=== PATIENT | female | born 1990 | race Caucasian/White ===

== ENCOUNTER 2018-10-05 18:42 | Emergency (ER) | payer BC, SELFPAY ==
[2018-10-05 18:44] VITALS: BP 131/95; PULSE 110; RESP 16; TEMP 36.6; O2SAT 97
--- NOTE | 2018-10-05 19:26 | ED.GENADUL_ITS ---
Discharge Plan Disposition Patient Disposition: HOME Condition: Improving Discharge Details Chief Complaint: Laceration Clinical Impression: Hand laceration Primary Care Provider: Maral Fuller ED Provider: Bolivar Wei Home Meds and New Rx's Prescriptions: No Action norgestimate-ethinyl estradiol [Ortho-Cyclen (28)] 1 TAB tablet 1 tab PO HS Qty: 3 RF: 6 Discharge Instructions Instructions: Laceration (ED), Skin Adhesive Care (ED) Additional Instructions: Keep wound clean and dry and initial bandage in place for the first 24 to 48 hours if possible. Then you may remove the bandage and provide appropriate wound care and cleaning with mild soap and water as needed. Do not apply any antibiotic ointment as this will prematurely remove the glue. Watch for signs of infection return immediately if these occur otherwise return in 10 days for suture removal Referrals: [facility] Emergency Dept. [Outside] (For suture removal) Medical Decision Making Patient presenting the emergency department chief complaint of laceration. Patient suffered right hand laceration approximately 1 hour prior to arrival due to cutting her hand on glass. Patient states that she is up-to-date on her immunizations and tetanus. Patient has a 2.2 cm laceration to the dorsal aspect of the right hand in between the index and middle finger. Sensation movement and tendon function is fully intact and cap refill is normal. Laceration goes just through the dermal tissue is actively bleeding but no deep structure injury is noted, no foreign body noted. Wound was anesthetized using 1% lidocaine and 2.5 mL's were injected locally. When appropriate anesthetic level was achieved wound was cleaned and irrigated and visualized to base in bloodless field. Wound closed with 4-0 Prolene 2 simple interrupted sutures were utilized. Glue was also applied over top of sutures. Patient tolerated procedure well. Glue was applied to wound due to patient stating that she is going to the beach in [place] and may have exposure to dirt or sand so I feel that this will provide additional protection for infection risk. Infectious symptoms along with return precautions were discussed with patient. Patient to return in 10 days for suture removal. After discussion of diagnosis and plan of care patient has no further needs, questions, or concerns and states clear understanding to return to the emergency department for any worsening symptoms. HPI General Mode of arrival: ambulatory . Date/Time Provider Initiated Documentation: 10/05/18 18:48 . Limitations to Documentation: no limitations . Information obtained by: patient . History of Present Illness 28 year old F presents to the emergency department with the chief complaint of right hand laceration, described as mild, with intensity rated at 3. Quality is described as sharp, and is localized to the right and upper extremity. Patient started experiencing this hour(s) (1) and it has been constant. Patient notes no other symptoms.. Patient did receive the following treatments prior to arrival, none Related Data Home Medications Medication Instructions Recorded Confirmed norgestimate-ethinyl estradiol 1 tab PO HS #3 pack 07/31/16 10/05/18 [Ortho-Cyclen] Allergies Allergy/AdvReac Type Severity Reaction Status Date / Time No Known Allergies Allergy Unverified 10/05/18 18:48 General Stated Complaint: Laceration PJ: 4 Review of Systems Cardiovascular Denies syncope Musculoskeletal Denies deformity, Denies limited range of motion and Denies numbness Integumentary/Breasts Reports as per HPI Neurologic Denies syncope, Denies numbness and Denies paresthesias PFSH Social History Smoking/Tobacco Use Status: Current every day Alcohol Intake: never Drug use: Daily Substance use type: marijuana Do you feel safe at home: Yes Do you feel safe in your relationship?: Yes Exam Const General: cooperative and no acute distress Orientation: alert, awake and oriented x3 Limitations: mental status not altered Resp Effort & Inspection: normal respiratory effort and able to speak in complete sentences Cardio Rate: regular rate Rhythm: regular rhythm Skin Trauma: laceration right dorsal hand linear, actively bleeding, superficial, motor nerve function intact and sensation intact Extrem General: normal exam except as noted Course Vital Signs Temperature 36.6 C 10/05/18 18:44 Pulse 110 H 10/05/18 18:44 Respiratory Rate 16 10/05/18 18:44 Blood Pressure 131/95 H 10/05/18 18:44 Pulse Oximetry 97 10/05/18 18:44 Temperature 36.6 C 10/05/18 18:44 Temperature Source Skin 10/05/18 18:44 Pulse 110 H 10/05/18 18:44 Respiratory Rate 16 10/05/18 18:44 Respiratory Effort Non-Labored 10/05/18 18:47 Blood Pressure 131/95 H 10/05/18 18:44 Blood Pressure Position Sitting 08/14/19 18:44 Pulse Oximetry 97 10/05/18 18:44 Oxygen Delivery Method Room Air 10/05/18 18:44 Oxygen Flow Rate 0 10/05/18 18:44 Pain Level 3 10/05/18 18:49
[2018-10-05 19:44] VITALS: BP 131/95; PULSE 98; RESP 16; TEMP 36.6; O2SAT 97
== END 2018-10-05 19:45 | disposition home or self-care (01) ==
PROVIDERS: Emergency Provider Nurse Practitioner Family; PCP Nurse Practitioner Family
DX: S61.411A Laceration without foreign body of right hand, initial encounter (principal); W25.XXXA Contact with sharp glass, initial encounter; Y93.G1 Activity, food preparation and clean up
CPT/HCPCS: 12001

== ENCOUNTER 2018-10-15 09:38 | Emergency (ER) | payer BC, SELFPAY ==
--- NOTE | 2018-10-15 09:45 | ED.GENADUL_ITS ---
Discharge Plan Disposition Patient Disposition: HOME Condition: Stable Discharge Details Clinical Impression: Visit for suture removal Primary Care Provider: Maral Fuller ED Provider: Cheng Duran Home Meds and New Rx's Prescriptions: Continued norgestimate-ethinyl estradiol [Ortho-Cyclen (28)] 1 TAB tablet 1 tab PO HS Qty: 3 RF: 6 Discharge Instructions Additional Instructions: Return for any acute concerns. The Steri-Strips will curl may be removed in approximately 5 to 7 days time. Medical Decision Making Pleasant and otherwise healthy 28-year-old female presents for suture removal from repaired hand laceration. The wound is well-appearing and sutures removed without difficulty. Stable for discharge to home. HPI General Mode of arrival: ambulatory . Date/Time Provider Initiated Documentation: 10/15/18 09:40 . Limitations to Documentation: no limitations . Information obtained by: patient . History of Present Illness 28 year old F presents to the emergency department with the chief complaint of Here for suture removal, no other complaints, Related Data Home Medications Medication Instructions Recorded Confirmed norgestimate-ethinyl estradiol 1 tab PO HS #3 pack 07/31/16 10/05/18 [Ortho-Cyclen (28)] Allergies Allergy/AdvReac Type Severity Reaction Status Date / Time No Known Allergies Allergy Unverified 10/05/18 18:48 General PJ: 4 PFSH Social History Smoking/Tobacco Use Status: Current every day Alcohol Intake: never Drug use: Daily Substance use type: marijuana Do you feel safe at home: Yes Do you feel safe in your relationship?: Yes Exam Narrative Exam Narrative: GEN: awake, alert, oriented 3. Pleasant, well groomed, interactive. HEAD: Normocephalic, atraumatic EXT: Full ROM, no edema, no rash. Healing laceration with 2 Prolene sutures present R hand on the dorsumn base of index finger Neuro: Grossly normal neurologic exam, conversant, interactive. Psych: Speech fluent, thoughts congruent, affect normal
[2018-10-15 09:46] VITALS: PULSE 88; TEMP 36.5
[2018-10-15 09:47] VITALS: PULSE 88; TEMP 36.5
== END 2018-10-15 09:50 | disposition home or self-care (01) ==
LOC: ER 09:53
PROVIDERS: Emergency Provider Emergency Medicine; PCP Nurse Practitioner Family
DX: S61.411D Laceration without foreign body of right hand, subsequent encounter (principal); W25.XXXD Contact with sharp glass, subsequent encounter; Z48.02 Encounter for removal of sutures

== ENCOUNTER 2018-10-18 15:15 | Outpatient (REF) | payer BC, SELFPAY ==
[2018-10-18 18:16] LABS: HCT 41.9 % (36.0-46.0); HGB 13.8 g/dL (12.0-15.5); Mean Corp. HGB Concentration 32.9 g/dL (32.0-36.0); Mean Corpuscular Hemoglobin 27.7 pg (27.0-33.0); Mean Platelet Volume 12.2 fL (8.0-11.0); Platelet Count 314 x1000/uL (130-400); RBC 4.99 m/cumm (4.00-5.20); White Blood Cell Count 14.18 k/cumm (4.4-10.8)
[2018-10-18 18:32] LABS: ALT 21 U/L (14-59); AST 15 U/L (15-37); Albumin 3.3 g/dL (3.4-5.0); Alkaline Phosphatase 93 U/L (46-116); BUN 7 mg/dL (7-18); Bilirubin, Total 0.1 mg/dL (0.2-1.0); CREATININE 0.83 mg/dL (0.55-1.02); Calcium 8.6 mg/dL (8.5-10.1); Chloride 103 mmol/L (98-107); Glucose 101 mg/dL (70-100); Sodium 140 mmol/L (136-145); TSH (W/Ref FT4) 2.26 uIU/mL (0.36-3.74); Total Protein 7.1 g/dL (6.4-8.2)
[2018-10-19 09:41] LABS: Vitamin D 25 Total 19.3 ng/ml (30-100)
== END 2018-10-18 15:35 ==
LOC: NCHCN 15:15
PROVIDERS: PCP Nurse Practitioner Family; Visit Provider Nurse Practitioner Family
DX: R53.83 Other fatigue (principal); F41.1 Generalized anxiety disorder
CPT/HCPCS: 80053; 82306; 85027; 84443

== ENCOUNTER 2019-03-01 22:11 | Outpatient (REF) | payer BC, SELFPAY ==
--- NOTE | 2019-03-01 16:30 | PAPFT_PTH ---
PATIENT: Skyler Dumont LOC: [facility] U#:[id number] AGE/SX: 28/F ROOM: RE03/01/[address]: Milly Morales : 1990 BED: DIS: 03/01/2019 SPEC #: [id number] RECD: 03/02/19 12:35 STATUS: KAELA REJenna #: [id number] MICHAEL: 03/01/19 16:[address]: Milly Morales DEPT: [facility] Cytology RECD BY: Deya Sharp ENTERED: 03/02/19 12:35 SP TYPE: PAPFT OTHR DR: Jonny Baer Tissues: 1 - CX/ENDOCX FOR PAP SMEARS Procedures: PAP THIN PREP/UVM Screening Comments: [id number] (CHLAMYDIA/GC)
[2019-03-01 19:55] LABS: Bilirubin Negative (Negative); Blood Negative (Negative); Clarity Clear (Clear); Glucose Negative (Negative); Ketones Negative (Negative); Leukocyte Esterase Negative (Negative); Nitrite Negative (Negative); Specific Gravity 1.015 (1.005-1.025); Urobilinogen 0.2 EU/dL (Up TO 0.2)
[2019-03-03 14:05] LABS: Chlamydia Result Negative (Negative); GC Result Negative (Negative)
== END 2019-03-01 22:31 ==
LOC: NCHCN 22:11
PROVIDERS: PCP Nurse Practitioner Family; Visit Provider Nurse Practitioner Family
DX: R30.0 Dysuria (principal); Z11.3 Encounter for screening for infections with a predominantly sexual mode of transmission; Z12.4 Encounter for screening for malignant neoplasm of cervix; Z00.00 Encounter for general adult medical examination without abnormal findings
CPT/HCPCS: 87491; 87591; 88142; 81003

== ENCOUNTER 2019-03-03 15:13 | Outpatient (REF) | payer BC, SELFPAY ==
[2019-03-06 15:45] LABS: HSV Type 1 Ab, IgG Positive (Negative); HSV Type 2 Ab, IgG Negative (Negative); Varicella IgG Antibody Positive (See Note)
== END 2019-03-03 15:33 ==
LOC: NCHCN 15:13
PROVIDERS: PCP Nurse Practitioner Family; Visit Provider Nurse Practitioner Family
DX: Z20.828 Contact with and (suspected) exposure to other viral communicable diseases (principal)
CPT/HCPCS: 86787; 86695; 86696

== ENCOUNTER 2020-01-02 01:09 | Outpatient (CLI) | payer BC, SELFPAY ==
--- NOTE | 2020-01-02 | DI.US_ITS ---
EXAM: US PELVIS TRANSVAGINAL CLINICAL HISTORY: IRREGULAR MENSES,N92.6,LLQ ABD PAIN,R10.32,RLQ ABD PAIN,R10.31. TECHNIQUE: Transabdominal and transvaginal pelvic ultrasound was performed using standard protocol. COMPARISON: No exams were available for comparison FINDINGS: KIDNEYS: Kidneys are symmetric in size. No evidence of renal calculi. No evidence of hydronephrosis. No renal mass or cyst identified. UTERUS: Position: Anteverted. Size: 6.3 long by 2.5 AP by 3.5 transverse cm Endometrium: 0.2 cm. Normal for patient's menstrual status. Myometrium: Unremarkable. Cervix: Unremarkable. OVARIES: Right: 2 x 1.4 x 1.4 cm Cyst or mass: Small follicular cysts present. Left: 2.6 x 1.4 x 1.5 cm Cyst or mass: Small follicular cysts present. DOPPLER: Color: Symmetric and uniform flow to both ovaries. No hyperemia. Duplex: Normal ovarian arterial waveforms visualized. CUL-DE-SAC: Free fluid: None. Other: None. IMPRESSION: 1. Normal sonographic appearance of the kidneys. 2. Normal-appearing uterus with endometrial stripe within normal limits. 3. Unremarkable bilateral ovaries. DATA REPOSITORY:
== END 2020-01-02 01:29 ==
PROVIDERS: PCP Nurse Practitioner Family; Visit Provider Nurse Practitioner Family
DX: N92.6 Irregular menstruation, unspecified (principal); R10.32 Left lower quadrant pain; R10.31 Right lower quadrant pain
CPT/HCPCS: 76830; 76856

== ENCOUNTER 2020-07-25 11:28 | Emergency (ER) | payer OTHER, SELFPAY ==
[2020-07-25 11:29] VITALS: BP 123/75; PULSE 80; RESP 16; TEMP 37; O2SAT 96
--- NOTE | 2020-07-25 11:29 | ED.GENADUL_ITS ---
Discharge Plan Disposition Patient Disposition: HOME Condition: Stable Discharge Details Clinical Impression: Facial twitching Primary Care Provider: Unknown,Unknown ED Provider: Daily Wagner Home Meds and New Rx's Prescriptions: Continued norgestimate-ethinyl estradiol [Ortho-Cyclen (28)] 1 TAB tablet 1 tab PO HS Qty: 3 RF: 6 escitalopram oxalate [Lexapro] 20 mg tablet 20 mg PO DAILY RF: 0 clindamycin phosphate 1 % solution 1 applic topical BID RF: 0 hydrocortisone [Proctosol HC] 2.5 % cream with perineal applicator 1 applic NJ TID PRNRF: 0 clonazepam 0.5 mg tablet 0.5 mg PO DAILY PRNRF: 0 Depo-SubQ provera 104 104 mg/0.65 mL syringe 104 mg SUBCUT Q3M RF: 0 Discharge Instructions Instructions: Stress (ED) Additional Instructions: At this time, your left lower lip drooping appears to be a stress reaction. The symptoms do improve when you are discussing things that make you happy or stress relieving. However, when discussing your upcoming test the symptoms begin once again. Your exam is not consistent with stroke or Moura's palsy today. Please take your clonazepam as previously prescribed. Please follow-up with primary care in the next week. If your symptoms become more consistent or you develop other new/worsening symptoms seek care urgently once again. Please try stress reduction techniques as much as possible. Referrals: Jonny Baer CONCRETE PUMP OPERATOR HELPER [NURSE PRACTITIONER] - Discharge Data Discharge Date/Time-TO BE ENTERED AT DEPARTURE: 07/25/20 13:01 Medical Decision Making Patient is a pleasant 30-year-old female presenting today with chief complaint of left-sided facial droop. Patient seen in urgent care prior to arrival and there was concern for potential CVA prompting him to seek care here. Initially, patient has been questioning if this Moura's palsy but per provider at the urgent care, patient had good mobility of her forehead. Patient states that symptoms began yesterday. Have waxed and waned since then. She denies any headache at this time. Has not noted any rash. States that she can have some numbness associated with this facial droop but that this to waxes and wanes. On exam, patient appears anxious. When discussing her current home life, patient does break out to tears. Patient safe at home. However, she has a large amount of stress associated, and exam. She reports that she has certifying exam tomorrow that she has already failed x1 and this seems to be greatly increasing her stress. She reports that she does have a history of anxiety and depression. Is chronically on citalopram which she takes daily. But, she does have clonazepam as needed that she has not been using. Her neurologic exam is intact. When I first evaluated her, she did have a left lower lip facial droop but this appeared to be voluntary. Patient had clear muscle activation pulling the lip in a downward projection. When distracting her, the droop would instantly go away. Droop would also increase when her discussing her upcoming test and then subside when talking about something that she enjoys. At one point, the lower droop completely subsided and she began to curl her upper lip at the center aspect of the lip. She states that she can feel it coming on. Can also make it stop and come back. However, she feels that overall this is a very involuntary movement. I discussed the potential for this being a stress reaction. At this time, her neurologic exam is intact. I not see any evidence to suggest CVA, Moura's palsy, infection. Discussed imaging and workup with the patient, she would prefer to hold off. Would like a dose of her PRN clonazepam. Spoke with urgent care PA who evaluated the patient initially. She states that at that time the symptom seemed more persistent. She was concerned for CVA. Reassessed the patient after speaking with Sherine Tobar PA-C, she reports that she is feeling improved after the p.o. clonazepam. Patient and I again discussed her current life stressors. When we discussed things she enjoys, the symptoms completely subside and then returned when discussing the test. She also reports that this time that she has been more fatigued than typical. She denies did discuss that this could be an electrolyte abnormality, thyroid disorder versus other. Patient and I discussed diagnostic work-up further. This clearly appears to be more of a stress reaction rather than Moura's or CVA. Again, she only has symptoms when she is discussing stressful things and they are able to resolve or migrate when discussing other things. Clonazepam greatly helped her symptoms. She is speaking without recurrence of her facial tick. I did advise that she should begin taking this once a day. At this time she reports I am all done for today. She does not want to move forward with any further imaging or blood work for follow-up with primary care. All of her questions and dconcerns were addressed, she is in agreement with this plan. Reached out to patient's PCP, they called back after patient left. They will reach out to patient today to schedule close f/u. HPI General Mode of arrival: ambulatory . Date/Time Provider Initiated Documentation: 07/25/20 11:28 . Limitations to Documentation: no limitations . Information obtained by: patient, RN/MD (contacted by PA at urgent care prior to her arrival) and RN notes reviewed . History of Present Illness 30 year old F presents to the emergency department with the chief complaint of left sided facial droop, described as moderate, Quality is described as other (numbness), and is localized to the face. Patient reports no radiation. Patient started experiencing this day(s) (1) and it has been intermittent. No relieving factors improve symptom(s), Other factors that worsen symptoms (stress) . Patient notes no other symptoms.; denies fever/chills, headaches, loss of appetite, nausea/vomiting, rash, shortness of breath and syncope. Patient did receive the following treatments prior to arrival, none Related Data Home Medications Medication Instructions Recorded Confirmed norgestimate-ethinyl estradiol 1 tab PO HS #3 pack 07/31/16 01/04/20 [Ortho-Cyclen (28)] clindamycin phosphate 1 % topical 1 applic TOPICAL BID 12/06/19 07/25/20 solution clonazepam 0.5 mg tablet 0.5 mg PO DAILY PRN 12/06/19 07/25/20 escitalopram oxalate 20 mg tablet 20 mg PO DAILY 12/06/19 07/25/20 hydrocortisone 2.5 % topical cream 1 applic NJ TID PRN g 12/06/19 07/25/20 with perineal applicator Depo-SubQ provera 104 104 mg SUBCUT Q3M 07/25/20 07/25/20 Allergies Allergy/AdvReac Type Severity Reaction Status Date / Time No Known Allergies Allergy Unverified 07/25/20 11:35 General PJ: 4 Review of Systems Constitutional Constitutional: Reports as per HPI, Denies chills, Reports fatigue (reports increased fatigue for several weeks), Denies fever(s), Denies frequent falls, Denies headache(s), Denies snoring and Denies weakness Eyes Eyes: Reports as per HPI, Denies blurry vision, Denies change in vision and Reports photophobia ENT Ears, Nose, Mouth, and Throat: Denies vertigo, Denies otalgia, Denies facial pain, Denies headache(s), Denies neck pain, Denies disequilibrium, Denies sore throat, Denies throat swelling and Denies tongue swelling Cardiovascular Cardiovascular: Reports as per HPI, Denies chest pain, Denies lightheadedness, Denies dyspnea and Denies dyspnea on exertion Respiratory Respiratory: Reports as per HPI, Denies chest congestion, Denies cough, Denies dyspnea, Denies dyspnea on exertion, Denies snoring, Denies stridor and Denies wheezing Gastrointestinal Gastrointestinal: Reports as per HPI, Denies abdominal pain, Denies change in bowel habits, Denies nausea and Denies vomiting Musculoskeletal Musculoskeletal: Reports as per HPI, Denies back pain, Denies myalgias, Denies muscle cramps, Denies neck pain and Denies numbness Integumentary/Breasts Skin/Breast: Reports as per HPI and Denies rash Neurologic Neurologic: Reports as per HPI, Denies abnormal movements, Denies abnormal speech, Denies vertigo, Denies frequent falls, Denies headache(s), Denies localized weakness, Denies numbness, Denies sensory deficit, Denies disequilibrium and Denies weakness Psychiatric Psychiatric: Reports abnormal sleep pattern (sleeping more than normal past several weeks), Reports anxiety, Reports depression and Denies panic attacks Endocrine Endocrine: Reports fatigue (reports increased fatigue for several weeks) Allergic/Immunologic Allergic/Immunologic: Denies throat swelling, Denies tongue swelling and Denies wheezing [facility] Medical History Allergic rhinitis Anxiety disorder Breast lump Herpes labialis Hidradenitis suppurativa Urinary frequency Social History Smoking/Tobacco Use Status: Current every day Smoking risk assessment performed?: Yes Alcohol Intake: never Drug use: Daily Substance use type: marijuana Do you feel safe at home: Yes Do you feel safe in your relationship?: Yes Exam Const General: cooperative, healthy appearing, uncomfortable, no acute distress, well developed and well groomed Nutritional Appearance: average body habitus and well nourished Orientation: alert, awake and oriented x3 [facility] Head: normal to inspection, no palpable skull fracture, normocephalic and atraumatic Ears: hearing grossly normal bilaterally, external ears normal and TM's normal bilaterally General nose exam: external nose normal Mouth: oral mucosae normal and moist mucous membranes Throat: posterior oropharynx normal Eyes General: appearance normal, both eyes and all related structures Alignment and Position: alignment normal Periorbital: periorbital findings normal Eyelids: eyelids normal Sclera: sclerae normal Cornea: corneas normal Pupils: PERRL EOM: EOM intact bilaterally Neck Neck: normal visual inspection, full ROM, no lymphadenopathy and no meningeal signs Resp Effort & Inspection: normal respiratory effort, able to speak in complete sentences and no respiratory distress Auscultation: clear to auscultation bilaterally, no rales, no rhonchi and no wheezes Cardio Rate: regular rate Rhythm: regular rhythm Heart Sounds: S1 normal and S2 normal GI Inspection: normal to inspection and non-distended Palpation: soft, no hepatosplenomegaly, not firm, no guarding, not rigid and nontender Percussion: normal to percussion Auscultation: normal bowel sounds Back/Spine/Pelvis Cervical Spine: normal cervical lordosis and cervical ROM normal Skin General skin exam: no rashes or lesions noted Neuro General: patient alert, patient awake and patient oriented x3 Cranial Nerves: CN's II-XI intact bilaterally (intermittent droop to left lower lip), PERRL, accommodation normal, EOM intact bilaterally, no nystagmus, facial strength normal, tongue midline, able to rotate head bilaterally and able to elevate shoulders bilaterally Cognition: normal cognition Speech: speech normal Gait: normal gait Motor: muscle tone normal throughout, strength 5/5 throughout, no pronator drift, no movement abnormalities noted and no fasciculations Sensory Exam: no sensory deficits noted Coordination: [id number] test normal, [id number] test normal, Romberg test normal, Does not sway with eyes open and rapid alternating movement UE normal Extrem General: normal to inspection, capillary refill normal, no pedal edema and no calf tenderness Psych Appearance: grossly normal and well kempt Mental Status: mental status grossly normal Speech and Movement: speech and movement normal
[2020-07-25] MEDS: clonazePAM 0.5 MG TAB PO (12:01)
[2020-07-25 13:01] VITALS: BP 116/80; PULSE 80; O2SAT 100
== END 2020-07-25 13:01 | disposition home or self-care (01) ==
PROVIDERS: Emergency Provider Physician Assistant
DX: R25.3 Fasciculation (principal)
CPT/HCPCS: 99283

== ENCOUNTER 2020-09-11 05:58 | Emergency (ER) | payer OTHER, SELFPAY ==
--- NOTE | 2020-09-11 06:00 | DI.RAD_ITS ---
Exam(s) XR ABD FLAT UPRIGHT PA CHEST EXAM: XR ABD FLAT UPRIGHT PA CHEST CLINICAL HISTORY: luq abdominal pain, r/o chilaiditi syndrome. TECHNIQUE: 2D digital imaging was performed. COMPARISON: CR CHEST 2 VIEWS PA,LAT from 08/16/2008 FINDINGS: Heart size is normal. The mediastinum is not widened. No pulmonary infiltrates nor pleural effusion s. No pneumothorax. There is platelike atelectasis in the right lung base. However, there is subtl e suggestion of possible free air subjacent to the right hemidiaphragm. Unfortunately the upright ab domen view does not include the right hemidiaphragm. Therefore these to be repeated. The bowel gas pattern is otherwise nonspecific. No evidence of bowel obstruction. No obvious masses nor bowel displacement. No abnormal calcifications. Regional bones appear unremarkable. IMPRESSION: As above. The upright abdomen film needs to be repeated to include the right hemidiaphragm. DATA REPOSITORY: RADIATION DOSE DELIVERED:
--- NOTE | 2020-09-11 06:00 | RT.EKG_ITS ---
APPROVED REPORT Exam: Resting ECG Reason for Exam: left chest pain Patient Location: E HR:70 bpm ECG Measurements Heart Rate 70 AXIS NV 137 P 23 QRSd 96 QRS 44 QT 388 T 27 QTc 417 Conclusion Sinus rhythm...normal P axis, V-rate 60- 99 Physician: no stemi. small q wave in lead 3. no significant st elevation or depressions
[2020-09-11 06:01] VITALS: BP 147/95; PULSE 94; TEMP 36.3; O2SAT 97
--- NOTE | 2020-09-11 06:12 | ED.GENADUL_ITS ---
Discharge Plan Disposition Patient Disposition: HOME Condition: Good Discharge Details Clinical Impression: Acute LUQ pain Primary Care Provider: Unknown,Unknown ED Provider: Jerome Jorgensen Home Meds and New Rx's Prescriptions: Continued escitalopram oxalate [Lexapro] 20 mg tablet 20 mg PO DAILY RF: 0 clindamycin phosphate 1 % solution 1 applic topical BID RF: 0 hydrocortisone [Proctosol HC] 2.5 % cream with perineal applicator 1 applic GA TID PRNRF: 0 clonazepam 0.5 mg tablet 0.5 mg PO DAILY PRNRF: 0 Depo-SubQ provera 104 104 mg/0.65 mL syringe 104 mg SUBCUT Q3M RF: 0 Discharge Instructions Instructions: Abdominal Pain (ED) Additional Instructions: At this time as we discussed together I suspect your symptoms are component of gas from your intestines causing irritation on your left upper diaphragm. Please transition to a low-fat, high-fiber, low fermentation diet. Please take Gas-X or Pepto-Bismol as needed. As we discussed if your symptoms persist after transition of diet and these therapies you may need further evaluation with ultrasound of your liver, CAT scan of your abdomen, or potential blood work. Please follow-up closely with your primary care provider. If you notice any wo rsening of your symptoms, or any new symptoms such as vomiting, diarrhea, fever, chills, shortness of breath, chest pain, numbness, weakness, or fainting , please return immediately to the emergency department for reevaluation. Please follow up with your primary care provider as soon as possible for reassessment and reevaluation. As always, it was a pleasure participating in your medical care today. Referrals: Sonia Dickson [NURSE PRACTITIONER] - Medical Decision Making This is a 30-year-old female with past medical history of elevated BMI, hidradenitis suppurativa, tobacco abuse, who presents today for evaluation of left upper quadrant abdominal pain. Patient states that for the last 2 to 3 weeks she has had intermittent left-sided pain in the left upper quadrant that comes and goes. She describes as an achy sensation, when it gets severe it will radiate up into her left chest and left shoulder. She states that it seems to be associated with food. She denies any spicy food intake, or any association with spicy foods or tomato based products. She denies any vomiting. She does admit to some intermittent loose stools recently. She denies any cough, fever or chills. No other complaints at this time. No other modifying factors. She denies any history of heart disease. Exam demonstrates a notably unremarkable abdomen, no evidence of an acute surgical abdomen whatsoever. However I am deep notably pressured palpation specifically under the left lateral ribs the patient does have some tenderness in the area of the liver there, however there is no evidence of hepatomegaly. No history of HIV or hepatitis. Differential is highest for gastric ulcer and esophagitis, however differential also does include Chilaiditi syndrome. ACS unlikely. Scad unlikely. Will get screening EKG out of an abundance of precaution, get a chest x-ray and abdominal series, monitor closely and reassess. 7:17 AM X-ray results have returned, no evidence of acute process, there is mild pistol- citizen participation specialist deformities in the femurs that is noted, and I did discuss this with the patient she does admit to chronic hip pain, and also notes that her family has all had major hip surgery by the age of 50. [address] a PT referral on an outpatient basis for further strengthening and physical therapy. In regards to the patient's abdominal pain she feels well at this point. I did discuss further imaging and labs, but I also note no evidence of an acute surgical abdomen at this time, and feel her symptoms are likely still from bowel causing diaphragmatic irritation. At this time through shared decision-making process patient declines additional imaging or labs at this time, and will follow-up closely with PCP. However we do recommend that the patient make notable dietary changes to increase her fiber, decrease her fatty food intake, and transition to a low fermenting diet. Discussed the potential need for further imaging and labs if the symptoms do not resolve with this. Discussed red flags which to return. I have extensively reviewed the treatment plan and discharge instructions with the patient. I have addressed all patient concerns at this time. The patient was made aware of what symptoms to monitor for that would warrant a return to the emergency department. Discussed the plan with the p atient, they demonstrate verbal understanding and agreement with our assessment and plan at this time. The documentation in this chart was dictated using [employer] dictation software. Please excuse any dictation errors. FINDINGS: Lungs: Normal. No consolidation. Pleural spaces: Normal. No pleural effusions. No pneumothorax. Heart/Mediastinum: Normal. No cardiomegaly. Gastrointestinal tract: Normal. No bowel dilation. Intraperitoneal space: Normal. No free air. Bones/joints: No acute osseous abnormalities. Mild pistol citizen participation specialist deformities of the femurs are noted. This can predispose the patient to cam type femoroacetabular impingement. Soft tissues: Normal. IMPRESSION: 1. No acute findings. 2. Mild pistol citizen participation specialist deformities of the femurs are noted. This can predispose the patient to cam type femoroacetabular impingement. Dedicated imaging of the hips can be obtained as clinically appropriate. Thank you for allowing us to participate in the care of your patient. HPI General Date/Time Provider Initiated Documentation: 09/11/20 05:59 . HPI Narrative: This is a 30-year-old female with past medical history of elevated BMI, hidradenitis suppurativa, tobacco abuse, who presents today for evaluation of left upper quadrant abdominal pain. Patient states that for the last 2 to 3 weeks she has had intermittent left-sided pain in the left upper quadrant that comes and goes. She describes as an achy sensation, when it gets severe it will radiate up into her left chest and left shoulder. She states that it seems to be associated with food. She denies any spicy food intake, or any association with spicy foods or tomato based products. She denies any vomiting. She does admit to some intermittent loose stools recently. She denies any cough, fever or chills. No other complaints at this time. No other modifying factors. She denies any history of heart disease. Related Data Home Medications Medication Instructions Recorded Confirmed clindamycin phosphate 1 % topical 1 applic TOPICAL BID 12/06/19 09/11/20 solution clonazepam 0.5 mg tablet 0.5 mg PO DAILY PRN 12/06/19 09/11/20 escitalopram oxalate 20 mg tablet 20 mg PO DAILY 12/06/19 09/11/20 hydrocortisone 2.5 % topical cream 1 applic GA TID PRN g 12/06/19 09/11/20 with perineal applicator Depo-SubQ provera 104 104 mg SUBCUT Q3M 07/25/20 09/11/20 Allergies Allergy/AdvReac Type Severity Reaction Status Date / Time No Known Allergies Allergy Unverified 07/25/20 11:35 General Stated Complaint: Abd Prob PJ: 3 Review of Systems All systems reviewed & are unremarkable except as noted in HPI and below PFSH Medical History Allergic rhinitis Anxiety disorder Breast lump Herpes labialis Hidradenitis suppurativa Urinary frequency Social History Smoking/Tobacco Use Status: Current every day Smoking risk assessment performed?: Yes Alcohol Intake: never Drug use: Daily Substance use type: marijuana Do you feel safe at home: Yes Do you feel safe in your relationship?: Yes Exam Narrative Exam Narrative: 1.Const: Well-nourished, Well-developed, appearing stated age 2.Eyes: PERRL, no conjunctival injection, and symmetrical lids. 3.ENT: Atraumatic external nose and ears. Moist MM. Neck: Symmetric, trachea midline, No thyromegaly. 4.CVS: +S1/S2, No murmurs or gallops. Peripheral pulses 2+ and equal in all extremities. Brisk capillary refill in all extremities. 5.RESP: Unlabored respiratory effort. Clear to auscultation bilaterally. No wheezes rales or rhonchi 6.GI: Soft, Nontender/Nondistended, No hepatosplenomegaly. No guarding or rebound. No generalized tenderness in the left upper, left lower, right upper or right lower quadrants. No pain or McBurney's point, negative Michelle sign. On notably deep pressured palpation with notable palpation under the left rib cage the patient does demonstrate some mild tenderness and sensitivity. No signs of an acute surgical abdomen whatsoever though. 7.MSK: Normocephalic/Atraumatic, Extremities w/o deformity or ttp No cyanosis or clubbing, Normal movement of all extremities 8.Skin: Warm, Dry. No rashes or lesions. 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 Sensation grossly intact, no focal neurologic deficits. 10.Psych: (AAO) x3. Appropriate mood and affect Course Vital Signs Vital signs: Vital Signs Temperature 36.3 C L 09/11/20 06:01 Pulse 94 H 09/11/20 06:01 Blood Pressure 147/95 H 09/11/20 06:01 Pulse Oximetry 97 09/11/20 06:01 Temperature 36.3 C L 09/11/20 06:01 Temperature Source Temporal Artery Scan 09/11/20 06:01 Pulse 94 H 09/11/20 06:01 Respiratory Effort Non-Labored 09/11/20 06:09 Blood Pressure 147/95 H 09/11/20 06:01 Blood Pressure Position Sitting 09/11/20 06:01 Pulse Oximetry 97 09/11/20 06:01 Oxygen Delivery Method Room Air 09/11/20 06:01 Oxygen Flow Rate 0 09/11/20 06:01 Pain Level 7 09/11/20 06:01
--- NOTE | 2020-09-11 06:58 | DI.VRAD_ITS ---
PROCEDURE INFORMATION: Exam: XR Complete Acute Abdomen Series Including Chest Exam date and time: 09/11/2020 6:11 AM Age: 30 years old Clinical indication: Localized; Left upper quadrant (luq); Patient HX: Luq abdominal pain, R/O chilaiditi syndrome TECHNIQUE: Imaging protocol: XR complete acute abdomen series, including 2 or more views of the abdomen and a single view chest. COMPARISON: No relevant prior studies available. FINDINGS: Lungs: Normal. No consolidation. Pleural spaces: Normal. No pleural effusions. No pneumothorax. Heart/Mediastinum: Normal. No cardiomegaly. Gastrointestinal tract: Normal. No bowel dilation. Intraperitoneal space: Normal. No free air. Bones/joints: No acute osseous abnormalities. Mild pistol sail lay out worker deformities of the femurs are noted. This can predispose the patient to cam type femoroacetabular impingement. Soft tissues: Normal. IMPRESSION: 1. No acute findings. 2. Mild pistol sail lay out worker deformities of the femurs are noted. This can predispose the patient to cam type femoroacetabular impingement. Dedicated imaging of the hips can be obtained as clinically appropriate. Dictated and Authenticated by: Otis Keith MD. Ordering:RIKY Cano MD
--- NOTE | 2020-09-11 08:59 | W.ED.FU ---
I received a call the morning of 09-11-20 at approximately 805 from radiology. Over read of plain film overnight, cannot rule out free air under the right hemidiaphragm. Recommend repeat upright film. I contacted the patient on her cell phone at 0815, phone call went to her voicemail. I left a message requesting that she call back to the ER at [phone] regarding her ER visit.
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
== END 2020-09-11 07:16 | disposition home or self-care (01) ==
PROVIDERS: Emergency Provider Student in an Organized Health Care Education/Training Program
DX: R10.12 Left upper quadrant pain (principal)
CPT/HCPCS: 81025; 93005; 99284; 74022; 93010; 99283

== ENCOUNTER 2020-09-12 19:25 | Emergency (ER) | payer OTHER, SELFPAY ==
[2020-09-12 19:30] VITALS: BP 122/101; PULSE 86; RESP 18; TEMP 36.6; O2SAT 97
--- NOTE | 2020-09-12 19:30 | DI.CT_ITS ---
Exam(s) CT CHEST/ABD/PEL W EXAM: CT CHEST/ABD/PEL W CLINICAL HISTORY: R/O free air right hemidiaphragm, LUQ abd pain. TECHNIQUE: Imaging Protocol: Axial computed tomography images with coronal and sagittal reformatted images were created and reviewed CONTRAST MATERIAL: Intravenous: Omnipaque 350 Contrast volume:100 ml Oral: / no COMPARISON: CR,XR XR ABD FLAT UPRIGHT PA CHEST from 09/11/2020 CR,XR XR ABD FLAT UPRIGHT PA CHEST from 09/11/2020 FINDINGS: CHEST: Tracheobronchial tree: Patent where visualized. Mediastinum and Talia: No dominant adenopathy or fluid collection. Pulmonary parenchyma: Minimal ground-glass opacity anterior right upper lobe no consolidation or lisa nant measurable mass. Pleura: No effusion or pneumothorax. Lymph nodes: Within normal limits. Aorta: Thoracic portion non-dilated. Heart: Normal size. Bones: Unremarkable for age. No lytic or blastic lesions. ABDOMEN: Liver: Normal density. No measurable mass. Gallbladder and biliary tract: No radiodense calculus or dilation. Pancreas: Normal density, no abnormal calcifications or inflammatory process. Spleen: Normal. Kidneys: Normal size, contour and axis. No radiodense stones or obstructive uropathy. No masses seen. Adrenal glands: No masses seen. Aorta: Abdominal portion non-dilated. Lymph nodes: Within normal limits. Soft tissues: Unremarkable. PELVIS: Bladder: Symmetric distention, no gross wall thickening. Bowel: No obstruction or bowel wall thickening. Normal appendix. No evidence of Chilaiditi'ss syndro me Peritoneal cavity: No ascites, collection or mesenteric inflammatory response. Bones: Unremarkable for age.. Reproductive organs: Within normal limits. IMPRESSION: No evidence free air. No acute abnormality in the chest abdomen or pelvis.. RADIATION DOSE DELIVERED: 1,800.69mGy.cm Total DLP DATA REPOSITORY: All CT scans at this facility are submitted to the National Radiology Data Registry (NRDR) Dose Index Registry (DIR) with the [employer] (A[employer]). RADIATION OPTIMIZATION: All CT scans at this facility use at least one of these dose optimization te chniques: automated exposure control; mA and/or kV adjustment per patient size (includes targeted exa ms where dose is matched to clinical indication); or iterative reconstruction.
--- NOTE | 2020-09-12 19:36 | W.ED.GENAD ---
Discharge Plan Disposition Patient Disposition: HOME Condition: Stable Discharge Details Clinical Impression: Gastroenteritis Primary Care Provider: Unknown,Unknown ED Provider: Virgen Funez Home Meds and New Rx's Prescriptions: Continued escitalopram oxalate [Lexapro] 20 mg tablet 20 mg PO DAILY RF: 0 clindamycin phosphate 1 % solution 1 applic topical BID RF: 0 hydrocortisone [Proctosol HC] 2.5 % cream with perineal applicator 1 applic [place] TID PRNRF: 0 clonazepam 0.5 mg tablet 0.5 mg PO DAILY PRNRF: 0 Depo-SubQ provera 104 104 mg/0.65 mL syringe 104 mg SUBCUT Q3M RF: 0 Discharge Instructions Instructions: Gastroenteritis (ED) Additional Instructions: CT shows some wall thickening of your bowel, no abnormalities on your chest CT or lungs. [place] diet for 2 to 3 days. Follow up with primary care provider in 3-5 days. Return to ED sooner if any worsening or concerns. Increase oral fluids. Please take Tylenol or Ibuprofen with food every 4-6 hours as needed for pain and swelling. Please return for any fever, vomiting, worsening abdominal pain, blood in your stools or vomiting of blood or any concerns. Discharge Data Discharge Date/Time-TO BE ENTERED AT DEPARTURE: 09/12/20 21:15 Medical Decision Making 30-year-old female presents to the ER after being called to return for possible free air in the right hemidiaphragm noted on chest x-ray which was performed proximately 24 hours ago. Patient was originally seen in the emergency room for left upper quadrant abdominal pain. Had a 3 view abdominal x-ray. She denies any nausea vomiting but reports some smaller increase in frequency loose stools. Denies any recent injury or shortness of breath. Labs ordered including CBC, CMP, urine CT chest abdomen pelvis with IV contrast. CBC shows white blood cell count 14.52, rest of the labs are largely unremarkable CR XR ABD FLAT UPRIGHT PA CHEST 09/11/2020 6:40 AM FINDINGS: Lungs: Normal lung architecture. Negative for consolidation. Negative for suspicious nodule. Scattered peripheral ground-glass opacity, right upper lobe and right middle lobe, nonspecific. Pleural spaces: Unremarkable. No pneumothorax. No pleural effusion. Heart: Unremarkable. No cardiomegaly. No pericardial effusion. Mediastinal space: Normal thymic remnant tissue. Aorta: Unremarkable. No aortic aneurysm. Lymph nodes: Unremarkable. No enlarged lymph nodes. Bones/joints: Unremarkable. No acute fracture. Soft tissues: Unremarkable. Mild nonspecific ground-glass opacity in the right lung. No evidence of pneumothorax or pleural effusion. Exam: CT Abdomen And Pelvis With Contrast Lungs: Lung bases are clear. Liver: Normal. No mass. Gallbladder and bile ducts: Normal. No calcified stones. No ductal dilation. Pancreas: Normal. No ductal dilation. Spleen: Normal. No splenomegaly. Adrenal glands: Normal. No mass. Kidneys and ureters: Normal. No hydronephrosis. Stomach and bowel: Stomach is moderately distended with fluid/food. Small bowel is not dilated. Wall thickening is noted through most of the jejunum. Terminal ileum is normal. Mild stool burden noted throughout. No significant diverticular disease observed. Rectum is collapsed. Negative for inflammatory changes around the colon. Appendix: A normal appendix is observed. Intraperitoneal space: Negative for intraperitoneal free air. Negative for abscess or free fluid. Fat stranding is observed in the left mesentery around loops of the jejunum. Vasculature: Unremarkable. No abdominal aortic aneurysm. Lymph nodes: Numerous small mesenteric lymph nodes are observed. Negative for retroperitoneal lymphadenopathy. Urinary bladder: Unremarkable as visualized. Reproductive: Unremarkable as visualized. Bones/joints: Unremarkable. No acute fracture. Soft tissues: Unremarkable. IMPRESSION: 1. Negative for intraperitoneal free air. 2. Negative for bowel obstruction. 3. Findings could support a clinical diagnosis of enteritis. Mesenteric inflammatory changes are likely reactive. Primary mesenteric inflammation not excluded. Thank you for allowing us to participate in the care of your patient. Dictated and Authenticated by: Ranjan Angeles MD Discussed CT results with patient who verbalizes understanding. This time diagnosis of gastroenteritis given. Discussed home care and strict return instructions, verbalized understanding. Patient remained hemodynamically stable alert and oriented throughout stay. She did not require any pain medications while here. This text was generated using [employer] system, please disregard any oddities of phrase or misspellings. HPI General Mode of arrival: ambulatory. Date/Time Provider Initiated Documentation: 09/12/20 19:26. Limitations to Documentation: no limitations. Information obtained by: patient. HPI Narrative: 30-year-old female presents to the ER after being called to return for possible free air in the right hemidiaphragm noted on chest x-ray which was performed proximately 24 hours ago. Patient was originally seen in the emergency room for left upper quadrant abdominal pain. Had a 3 view abdominal x-ray. She denies any nausea vomiting but reports some smaller increase in frequency loose stools. Denies any recent injury or shortness of breath. Related Data Home Medications Medication Instructions Recorded Confirmed clindamycin phosphate 1 % topical 1 applic TOPICAL BID 12/06/19 09/11/20 solution clonazepam 0.5 mg tablet 0.5 mg PO DAILY PRN 12/06/19 09/11/20 escitalopram oxalate 20 mg tablet 20 mg PO DAILY 12/06/19 09/11/20 hydrocortisone 2.5 % topical cream 1 applic [place] TID PRN g 12/06/19 09/11/20 with perineal applicator Depo-SubQ provera 104 104 mg SUBCUT Q3M 07/25/20 09/11/20 Allergies Allergy/AdvReac Type Severity Reaction Status Date / Time No Known Allergies Allergy Unverified 07/25/20 11:35 General Stated Complaint: Abd Prob PJ: 3 Review of Systems Narrative: Constitutional: Negative for weight loss, alert and oriented, well groomed, normal body habitus, appears comfortable. HEENT: Denies trauma, headaches, blurry vision, nasal discharge, sore throat, trouble swallowing. Chest: Denies chest pain, palpitations, irregular rhythm, hypertension. Respiratory: Denies Shortness of breath, cough, hemoptysis. GI: Denies nausea, vomiting, diarrhea, constipation. Positive abdominal pain : Denies dysuria, hematuria, flank pain, rectal bleeding. Neuro: Denies dizziness, blurry vision, weakness, syncope, headache or facial numbness. Hematologic: Denies easy bruising, intolerance to heat or cold, hair loss. [facility] Medical History Allergic rhinitis Anxiety disorder Breast lump Herpes labialis Hidradenitis suppurativa Urinary frequency Social History Smoking/Tobacco Use Status: Current every day Smoking risk assessment performed?: Yes Alcohol Intake: never Drug use: Daily Substance use type: marijuana Do you feel safe at home: Yes Do you feel safe in your relationship?: Yes Exam Narrative Exam Narrative: Constitutional: Alert and oriented x3. Appears stated age. Normal body habitus. Head: Normocephalic, no trauma. Eyes: Pupils PERRLA, Red reflex noted, EOM's intact. Eyelids symmetrical without lesions, discharge, or swelling. ENT: Bilateral TM's WNL, External ear normal to inspection, no mastoid TTP, swelling, or erythema, Nasal turbinates WNL, no nasal discharge. Normal dentition, Posterior pharynx WNL, no exudate. Chest: RRR, Normal S1, S2, distal pulses intact. Resp: Lungs clear to auscultation bilaterally, no wheezes, rales, or rhonchi. Abdomen: Soft, nondistended pinpoint tenderness to left upper quadrant not elicited with my exam however patient reports left upper quadrant tenderness. Musculoskeletal: Normal gait, 5/5 strength to all four extremities. Skin: No suspicious rashes or lesions. Capillary refill less than 2 sec. Neurologic: Cranial nerves II-XII intact. Alert and oriented x 3. DTR's intact. Hematologic/Lymphatic: No ecchymosis, no lymphadenopathy. Course Vital Signs Vital signs: Vital Signs Temperature 36.6 C 09/12/20 19:30 Pulse 86 09/12/20 19:30 Respiratory Rate 18 09/12/20 19:30 Blood Pressure 122/101 H 09/12/20 19:30 Pulse Oximetry 97 09/12/20 19:30 Temperature 36.6 C 09/12/20 19:30 Temperature Source Temporal Artery Scan 09/12/20 19:30 Pulse 86 09/12/20 19:30 Respiratory Rate 18 09/12/20 19:30 Respiratory Effort Non-Labored 09/12/20 19:32 Blood Pressure 122/101 H 09/12/20 19:30 Pulse Oximetry 97 09/12/20 19:30 Oxygen Delivery Method Room Air 09/12/20 19:30 Oxygen Flow Rate 0 09/12/20 19:30 Pain Level 3 09/12/20 19:30
[2020-09-12 19:47] LABS: HCT 45.6 % (36.0-46.0); HGB 14.6 g/dL (11.2-15.7); MCH 28.1 pg (27.0-33.0); MCV 87.9 fL (80-95); MPV 11.1 fL (8.0-11.0); Platelet Count 298 10^3/uL (130-400); RBC 5.19 10^6/uL (3.93-5.22); RDW 12.8 % (11.7-14.6); RDW-SD 41.7 fL; WBC 14.52 10^3/uL (4.4-10.8)
[2020-09-12 20:01] LABS: ALT 20 U/L (14-59); AST 10 U/L (15-37); Albumin 3.9 g/dL (3.4-5.0); Alkaline Phosphatase 98 U/L (46-116); Anion Gap 8.9 mmol/L (3-11); BUN 7 mg/dL (7-18); Bilirubin, Total 0.2 mg/dL (0.2-1.0); CO2 28.1 mmol/L (21.0-32.0); CREATININE 0.8 mg/dL (0.55-1.02); Calcium 8.7 mg/dL (8.5-10.1); Chloride 103 mmol/L (98-107); Glucose 100 mg/dL (74-106); Potassium 3.5 mmol/L (3.5-5.1); Sodium 140 mmol/L (136-145); Total Protein 8.3 g/dL (6.4-8.2)
[2020-09-12] MEDS: Omnipaque 350 MG/ML 100 ML BTL IJ (20:21)
[2020-09-12] MEDS: Normal Saline Flush 10 ML SYR IVP (20:22)
[2020-09-12] MEDS: Normal Saline - Diluent 50 ML VIAL IV (20:22)
--- NOTE | 2020-09-12 20:49 | DI.VRAD_ITS ---
PROCEDURE INFORMATION: Exam: CT Chest With Contrast; Diagnostic Exam date and time: 09/12/2020 7:37 PM Age: 30 years old Clinical indication: Other: R/O free air right hemidiaphragm, luq abd pain TECHNIQUE: Imaging protocol: Diagnostic computed tomography of the chest with contrast. 3D rendering (Not supervised by radiologist): MIP and/or 3D reconstructed images were created by the technologist. Radiation optimization: All CT scans at this facility use at least one of these dose optimization techniques: automated exposure control; mA and/or kV adjustment per patient size (includes targeted exams where dose is matched to clinical indication); or iterative reconstruction. Contrast material: OMNIPAQUE 350; Contrast route: INTRAVENOUS (IV); COMPARISON: CR XR ABD FLAT UPRIGHT PA CHEST 09/11/2020 6:40 AM FINDINGS: Lungs: Normal lung architecture. Negative for consolidation. Negative for suspicious nodule. Scattered peripheral ground-glass opacity, right upper lobe and right middle lobe, nonspecific. Pleural spaces: Unremarkable. No pneumothorax. No pleural effusion. Heart: Unremarkable. No cardiomegaly. No pericardial effusion. Mediastinal space: Normal thymic remnant tissue. Aorta: Unremarkable. No aortic aneurysm. Lymph nodes: Unremarkable. No enlarged lymph nodes. Bones/joints: Unremarkable. No acute fracture. Soft tissues: Unremarkable. IMPRESSION: Mild nonspecific ground-glass opacity in the right lung. No evidence of pneumothorax or pleural effusion. PROCEDURE INFORMATION: Exam: CT Abdomen And Pelvis With Contrast Exam date and time: 09/12/2020 7:37 PM Age: 30 years old Clinical indication: Other: R/O free air right hemidiaphragm, luq abd pain TECHNIQUE: Imaging protocol: Computed tomography of the abdomen and pelvis with contrast. 3D rendering (Not supervised by radiologist): MIP and/or 3D reconstructed images were created by the technologist. Radiation optimization: All CT scans at this facility use at least one of these dose optimization techniques: automated exposure control; mA and/or kV adjustment per patient size (includes targeted exams where dose is matched to clinical indication); or iterative reconstruction. Contrast material: OMNIPAQUE 350; Contrast volume: 100 ml; Contrast route: INTRAVENOUS (IV); COMPARISON: CR XR ABD FLAT UPRIGHT PA CHEST 09/11/2020 6:40 AM FINDINGS: Lungs: Lung bases are clear. Liver: Normal. No mass. Gallbladder and bile ducts: Normal. No calcified stones. No ductal dilation. Pancreas: Normal. No ductal dilation. Spleen: Normal. No splenomegaly. Adrenal glands: Normal. No mass. Kidneys and ureters: Normal. No hydronephrosis. Stomach and bowel: Stomach is moderately distended with fluid/food. Small bowel is not dilated. Wall thickening is noted through most of the jejunum. Terminal ileum is normal. Mild stool burden noted throughout. No significant diverticular disease observed. Rectum is collapsed. Negative for inflammatory changes around the colon. Appendix: A normal appendix is observed. Intraperitoneal space: Negative for intraperitoneal free air. Negative for abscess or free fluid. Fat stranding is observed in the left mesentery around loops of the jejunum. Vasculature: Unremarkable. No abdominal aortic aneurysm. Lymph nodes: Numerous small mesenteric lymph nodes are observed. Negative for retroperitoneal lymphadenopathy. Urinary bladder: Unremarkable as visualized. Reproductive: Unremarkable as visualized. Bones/joints: Unremarkable. No acute fracture. Soft tissues: Unremarkable. IMPRESSION: 1. Negative for intraperitoneal free air. 2. Negative for bowel obstruction. 3. Findings could support a clinical diagnosis of enteritis. Mesenteric inflammatory changes are likely reactive. Primary mesenteric inflammation not excluded. Dictated and Authenticated by: Ranjan Angeles MD. Ordering:AMY New MD
[2020-09-12 21:13] VITALS: BP 120/75; PULSE 86; RESP 18; TEMP 36.6
== END 2020-09-12 21:15 | disposition home or self-care (01) ==
PROVIDERS: Emergency Provider Registered Nurse Emergency
DX: K52.9 Noninfective gastroenteritis and colitis, unspecified (principal)
CPT/HCPCS: 36415; 74177; 80053; 81025; 85027; 99285; 71260; 99284; J3490

== ENCOUNTER 2020-09-13 19:21 | Outpatient (REF) | payer OTHER, SELFPAY ==
[2020-09-14 14:16] LABS: COVID-19 RT-PCR UVMMC Result Negative (Negative)
== END 2020-09-13 19:22 | disposition home or self-care (01) ==
LOC: LBN 19:21
PROVIDERS: Visit Provider Physician Assistant Medical
DX: Z20.822 Contact with and (suspected) exposure to COVID-19 (principal); R10.9 Unspecified abdominal pain
CPT/HCPCS: U0003

== ENCOUNTER 2021-06-12 18:02 | Outpatient (REF) | payer OTHER, SELFPAY ==
[2021-06-12 15:50] LABS: HCT 44.1 % (36.0-46.0); MCH 27.8 pg (27.0-33.0); MCHC 31.7 % (32.0-36.0); MCV 87.5 fL (80-95); Platelet Count 285 10^3/uL (130-400); RBC 5.04 10^6/uL (3.93-5.22); RDW 13.5 % (11.7-14.6); RDW-SD 43.4 fL; WBC 12.44 10^3/uL (4.4-10.8)
[2021-06-12 16:43] LABS: TSH 2.09 uIU/mL (0.36-3.74)
[2021-06-14 12:33] LABS: COVID-19 RT-PCR UVMMC Result Negative (Negative)
== END 2021-06-12 18:03 | disposition home or self-care (01) ==
LOC: NCHCN 18:02
PROVIDERS: Visit Provider Family Medicine
DX: J06.9 Acute upper respiratory infection, unspecified (principal); R53.83 Other fatigue; Z20.822 Contact with and (suspected) exposure to COVID-19
CPT/HCPCS: 85027; U0003; 84443

== ENCOUNTER 2022-11-19 21:07 | Outpatient (REF) | payer OTHER, SELFPAY ==
[2022-11-19 19:23] LABS: Abs Immature Grans 0.04 10^3/uL (0.0-0.06); Absolute Basophil Count 0.04 10^3/uL (0.0-0.2); Absolute Eosinophil Count 0.26 10^3/uL (0.0-0.7); Absolute Lymphocyte Count 3.79 10^3/uL (1.2-3.4); Absolute Monocyte Count 0.61 10^3/uL (0.1-0.8); Basophils % 0.3; HCT 42.5 % (36.0-46.0); HGB 13.9 g/dL (11.2-15.7); Immature Grans % 0.3; Lymphocytes % 29.3; MCH 28.2 pg (27.0-33.0); MCHC 32.7 % (32.0-36.0); MCV 86 fL (80-95); MPV 11.8 fL (8.0-11.0); Monocytes % 4.7; Neutrophils % 63.4; Platelet Count 308 10^3/uL (130-400); RBC 4.93 10^6/uL (3.93-5.22); RDW 13.2 % (11.7-14.6); RDW-SD 41.1 fL; WBC 12.92 10^3/uL (4.4-10.8)
[2022-11-19 19:26] LABS: Absolute Neutrophil Count 8.19 10^3/uL (1.2-6.7)
[2022-11-19 19:44] LABS: ALT 22 U/L (14-59); AST 16 U/L (15-37); Albumin 3.5 g/dL (3.4-5.0); Alkaline Phosphatase 95 U/L (46-116); Anion Gap 10.9 mmol/L (3-11); BUN 10 mg/dL (7-18); Bilirubin, Total 0.2 mg/dL (0.2-1.0); CO2 22.1 mmol/L (21.0-32.0); CREATININE 0.9 mg/dL (0.55-1.02); Calcium 8.2 mg/dL (8.5-10.1); Calculated LDL 69 mg/dL (<100); Chloride 105 mmol/L (98-107); Cholesterol 126 mg/dL (<200); Estimated GFR 86.57 (mL/min/1.73m2); Glucose 122 mg/dL (74-106); HDL Cholesterol 36 mg/dL (40-60); Potassium 3.7 mmol/L (3.5-5.1); Sodium 138 mmol/L (136-145); TSH (W/Ref FT4) 2.18 uIU/mL (0.36-3.74); Total Protein 6.9 g/dL (6.4-8.2); Triglyceride 105 mg/dL (<150)
[2022-11-19 19:58] LABS: Hemoglobin A1C 5.6 % (<5.7)
== END 2022-11-19 21:08 | disposition home or self-care (01) ==
LOC: NCHCN 21:07
PROVIDERS: Visit Provider Nurse Practitioner Family
DX: F41.8 Other specified anxiety disorders (principal); F17.210 Nicotine dependence, cigarettes, uncomplicated; R03.0 Elevated blood-pressure reading, without diagnosis of hypertension; E66.8 Other obesity; Z68.41 Body mass index [BMI] 40.0-44.9, adult; G44.84 Primary exertional headache; R73.09 Other abnormal glucose
CPT/HCPCS: 80053; 80061; 83036; 84443; 85025

== ENCOUNTER 2024-09-06 18:19 | Outpatient (REF) | payer OTHER, SELFPAY ==
[2024-09-06 22:46] LABS: ALT 22 U/L (14-59); AST 14 U/L (15-37); Albumin 3.6 g/dL (3.4-5.0); Anion Gap 12.6 mmol/L (3-11); BUN 8 mg/dL (7-18); CO2 22.4 mmol/L (21.0-32.0); Calcium 8.4 mg/dL (8.5-10.1); Calculated LDL 78 mg/dL (<100); Chloride 104 mmol/L (98-107); Cholesterol 146 mg/dL (<200); Estimated GFR 115.59 (mL/min/1.73m2); Glucose 98 mg/dL (74-106); HDL Cholesterol 33 mg/dL (>or=50); Potassium 4.1 mmol/L (3.5-5.1); Sodium 139 mmol/L (136-145); TSH 2.58 uIU/mL (0.36-3.74); Total Protein 6.9 g/dL (6.4-8.2); Triglyceride 179 mg/dL (<150)
[2024-09-06 23:14] LABS: Hemoglobin A1C 5.4 % (<5.7)
[2024-09-06 23:54] LABS: Alkaline Phosphatase 94 U/L (46-116); Bilirubin, Total 0.2 mg/dL (0.2-1.0)
== END 2024-09-06 18:20 | disposition home or self-care (01) ==
LOC: NCHCN 18:19
PROVIDERS: Visit Provider Nurse Practitioner Family
DX: Z00.00 Encounter for general adult medical examination without abnormal findings (principal); Z13.1 Encounter for screening for diabetes mellitus; Z68.41 Body mass index [BMI] 40.0-44.9, adult; Z13.220 Encounter for screening for lipoid disorders
CPT/HCPCS: 80053; 80061; 83036; 84443

== ENCOUNTER → 2025-01-01 11:56 | Outpatient (CLI) | payer OTHER, SELFPAY ==
--- NOTE | 2025-01-01 12:02 | DI.RAD_ITS ---
Exam(s) XR SHOULDER LT COMPLETE 2+V EXAM: XR SHOULDER LT COMPLETE 2+V CLINICAL HISTORY: ACUTE PAIN LT SHOULDER, M25.512. TECHNIQUE: 2D digital imaging was performed. COMPARISON: No exams were available for comparison FINDINGS: Four views No evidence of fracture nor dislocation glenohumeral joint. There is, however, a calcific density in the soft tissue just above the greater tuberosity measuring 6 x 2 mm. Probably represents calcific rotator cuff tendinitis. Subacromial space is not diminished. AC joint appears unremarkable as does the clavicle. Humeral head and neck appear unremarkable. IMPRESSION: There is a 6 x 2 mm calcification above the greater tuberosity. Most probably consistent with calcific rotator cuff tendinitis. DATA REPOSITORY: RADIATION DOSE DELIVERED:
== END ==
LOC: DI 11:58
DX: M25.512 Pain in left shoulder (principal)
CPT/HCPCS: 73030